=== PATIENT | male | born 1980 | race Caucasian/White ===

== ENCOUNTER 2025-07-04 21:02 | Inpatient (IN) | payer BC ==
[~2025-07-04] VITALS: Ht 182.9 cm; Wt 77.3 kg
--- NOTE | 2025-07-04 21:12 | Physician Documentation ---
History of Present Illness Stated Complaint: KIDNEY STONES Time Seen by MD: 21:07 HPI Patient presents to the emergency room sent from [facility] for 2.3 cm obstructing kidney stone with intractable pain. No acute kidney injury was appreciated at sending facility and no urinary tract infection however he has been fighting a urinary tract infection therefore 1 g of Rocephin was empirically administered. Patient has required prior stenting. He does not have a urologist. Medication Reconciliation Allergies: Coded Allergies: No Known Allergies (Unverified , 07/04/25) Review of Systems ROS All review of systems negative except as per HPI Physical Exam Physical Exam General: Patient is awake, alert, oriented x4 in mild distress Head: Normocephalic and atraumatic. Eyes: Conjunctival normal. EOMI. PERRL. ENT: Mucous membranes moist. Neck: Supple, trachea is midline. Chest: Clear to auscultation bilaterally without rales, rhonchi, or wheezes. T here is no accessory muscle use or retractions. Cardiac: RRR without murmurs, gallops, or rubs. Back: Noted left CVA tenderness Progress Progress Note I have spoken with urologist, Dr. Dhillon, who is aware of patient and request patient to be NPO and he will likely bring patient in for stenting tomorrow morning. Medical Decision Making Findings Patient presents to the emergency room for evaluation by Urology sent from [facility]. He has intractable pain along with a 2.3 cm kidney stone. Additional pain medicine required. The plan is to take patient to urology suite tomorrow by Dr. Dhillon. Differential Dx:Considerations: Include: AAA, Angina/IL, Aortic dissection, Appendicitis, Bowel obstruction, Cholangitis, Cholelithasis, Constipation, Diverticular disease, Esophageal rupture, Esophagitis, Gastritis/PUD, Gastroenteritis, GI hemorrhage, Hernia, Hepatitis, Inflammatory BD, Ischemic bowel, Pancreatitis, Porphyria, Testicular torsion, Trauma, intraabdominal, Urinary obstruction, Urinary tract infection, Urolithiasis, Other Departure Admitted to Inpatient Unit: yes, to hospitalist Impression: Primary Impression: Kidney stone Additional Impression: Intractable pain Referrals: NO PRIMARY CARE PROVIDER (PCP) Critical Care Note Total Time (mins): 30 Critical Care Note The very real possibility of a deterioration of this patient's condition required the highest level of my preparedness for sudden, emergent intervention. I provided critical care services, which included medication orders, frequent reevaluations of the patient's condition and response to treatment, ordering and reviewing test results, and discussing the case with various consultants. Excludes time spent performing separately billable procedures. The critical care time associated with the care of the patient was 30 minutes not counting procedures Signature Scribe Signature: No scribe Attestation: The note accurately reflects work and decisions made by me.Bulmaro Oliver MD 07/04/25 21:23 BULMARO OLIVER MD Jul 04, 2025 21:12
[2025-07-04] MEDS ORDERED: magnesium Cl slow-release 64mg tablet PO PRN (22:30)
[2025-07-04] MEDS ORDERED: potassium Cl 40MEQ/1/2NS 520ml 520 ML IV PRN (22:30)
[2025-07-04] MEDS ORDERED: magnesium sulf-water 4G/100mL 100 ML IV PRN (22:30)
[2025-07-04] MEDS ORDERED: mag hydrox/Alum hydrox/simeth 30ml oral suspension PO PRN (22:30)
[2025-07-04] MEDS ORDERED: HYDROcodone/acetaminophen 5mg/325mg tablet PO PRN (22:30)
[2025-07-04] MEDS ORDERED: potassium Cl 20 mEq SR tablet PO PRN ×2 (22:30)
[2025-07-04] MEDS ORDERED: magnesium sulf-water 2g/50mL 50 ML IV PRN (22:30)
[2025-07-04] MEDS ORDERED: magnesium hydroxide 30ml (MOM) UD suspension PO PRN (22:30)
[2025-07-04 22:49] LABS: MEAN PLATELET VOLUME 6.3 FL (7.4-10.4); RED CELL DISTRIBUTION WIDTH 14.1 % (11.5-14.5)
[2025-07-04] MEDS: normal saline 1000ml 1,000 ML IV SCH (22:49)
[2025-07-04 23:00] LABS: APTT 29 SECONDS (22-32); INR 1.1 INR
[2025-07-04 23:02] LABS: CREATININE 1.53 MG/DL (0.60-1.10); PHOSPHORUS 3.8 MG/DL (2.3-4.5); TOTAL CARBON DIOXIDE 26.5 MMOL/L (24-32); eCRCL 66 ML/MIN; eGFR 49 ML/MIN
--- NOTE | 2025-07-04 23:19 | HISTORY AND PHYSICAL-Residence ---
History & Physical Providers to Resident Creating Document: RUBÉN QUIÑONES RES ~ History of Present Illness Reason for Admit\Complaint: Left flank pain History of Present Illness The 44-year-old male with a past medical history of recurrent renal stones and UTIs was transferred from [facility] for higher level of care- urology consultation. He has a history of recurrent renal stones that started about 10 years back. He got a lithotripsy and intraureteral stent placement on the right side about 10 years back. Had shockwave lithotripsy done 2-3 years later on bilateral sides. Since then, he had been passing recurrent renal stone s-about 14 in the last 7-8 years. Stated that he usually notices blood in urine and bloody clots. He developed left flank pain about two months back which got worse with the movement and relieved with the rest. He did not use any pain medications but used in a year with the medication that he buys from [employer]. He tested his urine at home and it was positive for leukocyte esterase - dipstick test. Also had dysuria and so consulted [employer] who prescribed ciprofloxacin 200 mg p.o. b.i.d. for 10 days in the last dose was Tuesday this week. He felt better while he was taking antibiotics and denies any dysuria but the pain is back again. It started today and it was worse than before and he also vomited 2-3 times today. Feels that he had some fever but did not check temperature. So he went to the ER. He received 1 L normal saline bolus, Rocephin 1 g IV, pain medication-morphine 4 mg IV once, q.12h 30 mg IM once and also Zofran at the outside hospital. Abdomen/pelvis CT done at the outside hospital showed moderate new left hydronephrosis and chronic minimal right hydronephrosis. ER provider consulted on-call urologist-Dr. Dhillon and his planning a procedure tomorrow. He said he had at least 2-3 UTIs in the last one year. Denies having any PCP and no urology follow up. His urologist retired in 2020. He got a new referral to a urologist via [employer] and a referral was sent to Dr. Crespo. Mentioned that he used to take celecoxib in the past but denies taking any pain medication recently. Denies being told about stone composition ever in the past. 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 Quit smoking tobacco about 10 years back. Smoked half pack of cigarettes for about 15-20 years before that. Quit drinking alcohol about 10 years back and mentioned that he drank a lot before that-beer, whiskey, vodka in the same day. Smokes marijuana daily ROS ROS Constitutional: No fever, chills, dizziness, weakness, weight gain or loss Eyes: No pain, erythema, discharge, blurring of vision ENT: No sore throat, epistaxis, tinnitus Cardiovascular: No chest pain, chest pressure, chest discomfort, palpitations, syncope, lower extremity edema, paroxysmal nocturnal dyspnea Respiratory: No shortness of breath, cough, hemoptysis Gastrointestinal: Normal appetite. No nausea, vomiting, diarrhea, constipation, hematemesis, abdominal pain, bloating, melena or fresh blood Genitourinary: Hematuria present. No frequency, urgency, nocturia, or dysuria Musculoskeletal: Left flank pain present. No arthralgias Integumentary: No change in skin, hair, nails. No swelling, bruising, abrasions Neurologic: No headache, neck pain, numbness or tingling of the extremities, weakness Psychiatric: No delusions, depression, loss of interest in normal activity or change in sleep pattern, hallucinations, suicidal ideations Endocrine: No fatigue, weakness, polydipsia, polyuria, change in appetite, heat or cold intolerance, sweating, dry skin Hematological: No bleeding, petechiae, bruising Allergies: No asthma or urticaria Exam Vitals: Vital Signs Date Time Temp Pulse Resp B/P (MAP) Pulse Ox O2 Delivery O2 Flow Rate FiO2 07/04/25 21:54 18 07/04/25 21:53 88 128/79 (95) 99 0 07/04/25 21:05 98.2 General: Alert and oriented x4 HEENT: Normocephalic and atraumatic. Pupils equal round reactive to light and accommodation. Extraocular movements intact. Oral and nasal mucosa moist Neck: Trachea is in midline. No masses or JVD Chest: Bilateral normal breath sounds. No crackles, rhonchi or wheezes Cardiovascular: Regular rate and rhythm. S1-S2 normal. No rubs or murmurs Abdomen: Soft, nontender nondistended. Bowel sounds present. Mild tenderness in the left lower flank. No costovertebral angle tenderness bilaterally Extremities: No cyanosis, clubbing or edema Central Nervous System: No gross sensory or motor deficits. CN II to XII grossly intact. No cerebellar signs Musculoskeletal: No spinal or paraspinal tenderness apart from left lower flank tenderness Skin: Warm and dry Diagnostic Data Diagnostic Data: Laboratory Tests Test 07/04/25 22:39 Coagulation Comments Advance Care Planning Advanced Care plannin - 30 Minutes Additional Plan Recurrent renal stones New moderate left hydronephrosis and chronic minimal right hydronephrosis History of right ureteral stent placement about 10 years back-removed few weeks later Abdomen/pelvis CT at the outside hospital showed moderate new left hydronephrosis due to a 2.3 cm calculus at the left ureteropelvic junction. There is chronic minimal right hydronephrosis due to a calculus at the right mid ureter measuring 5 mm at the level of S1. Additional smaller stones in both the kidneys. Diverticulosis of the sigmoid colon without diverticulitis Received 1 L normal saline bolus, Rocephin 1 g IV, pain medication and antiemetics at the outside hospital Slightly elevated WBC with neutrophilia. Started Rocephin 1 g IV daily from tomorrow Procalcitonin ordered. Lactic acid within normal limit Started tamsulosin 0.4 mg p.o. daily Started normal saline 1 L at 100 cc/hour Morphine/Gladstone for pain Avoiding Ketoralac due to possible underlying CKD Continue Zofran 4 mg IV q.6h p.r.n. for nausea/vomiting Pending UA and urine tox UA at the outside hospital showed trace leukocyte esterase, 14 WBC, 80 RBC Blood culture and urine culture ordered Urologist-Dr. Dhillon aware. Plan for a procedure tomorrow. NPO after midnight Possible RENUKA on CKD BUN 20, creatinine 1.53, EGFR 49 At the outside hospital, BUN 22, creatinine 1.16 and EGFR 79 Urine lytes ordered Continue normal saline at 100 cc/hour Hypogonadism Takes subcu testosterone 80 mg once a week - on Tuesdays # chest x-ray showed hyperinflation and no acute cardiopulmonary abnormalities # pending EKG and med reconciliation Diet: Sodium restricted diet. NPO after midnight DVT prophylaxis: Heparin 5000 units subcutaneous q.12h Rubén Quiñones MD Internal Medicine Resident, PGY 3 Patient seen and evalauted using HIP[employer] complaint AV device Agree with plan as discussed with the resident Aris Martinez MD Date of Service: Jul 05, 2025 Billing Provider: ARIS MARTINEZ MD, MANOJNA RES Jul 04, 2025 23:19 ARIS MARTINEZ MD Jul 05, 2025 01:15
[2025-07-04] MEDS ORDERED: TEST200K SQ (23:32)
--- NOTE | 2025-07-04 23:48 | RADIOLOGY REPORT ---
EXAM: DI CHEST,SINGLE VIEW CLINICAL HISTORY: monitor changes TECHNIQUE: Single AP view of the chest WID: COMPARISON: None FINDINGS: Lines and tubes: None Chest: The heart size and pulmonary vasculature is within normal limits. No pleural effusion, pneumothorax, or consolidation. The osseous structures are grossly intact. IMPRESSION: 1. No acute cardiopulmonary abnormality.
[2025-07-05] VITALS (21 sets, daily range): BP systolic 96–145; BP diastolic 54–114; PULSE 73–117; RESP 12–20; TEMP 97.6–99.6; O2SAT 91–100
[2025-07-05 00:26] LABS: LEUKOCYTE ESTERASE ,URINE NEGATIVE (Neg); NITRITES, URINE NEGATIVE (Neg); OCCULT BLOOD,URINE SMALL (Neg)
[2025-07-05 00:29] LABS: UA COLLECTION TYPE CLN CATCH MIDSTREAM
[2025-07-05 00:44] LABS: OSMOLALITY UA 693 MOSM/K (50-1400)
[2025-07-05 00:46] LABS: CREATININE,URINE RANDOM 234.0 MG/DL; URINE AMPHETAMINE SCREEN NEGATIVE (Neg); URINE BARBITUATE SCREEN NEGATIVE (Neg); URINE BENZODIAZEPINES SCREEN NEGATIVE (Neg); URINE CANNABINOID SCREEN POSITIVE (Neg); URINE COCAINE SCREEN NEGATIVE (Neg); URINE METHADONE SCREEN NEGATIVE (Neg); URINE OPIATE SCREEN POSITIVE (Neg); URINE PHENCYCLIDINE SCREEN NEGATIVE (Neg)
[2025-07-05 00:50] LABS: MUCUS STRANDS MODERATE /LPF (Neg); SQUAMOUS EPITHELIAL CELL,UR NONE SEEN /LPF (FEW)
[2025-07-05] MEDS: ondansetron/PF 4mg/2ml inj IV PRN (01:24)
[2025-07-05 03:10] LABS: UA EOSINOPHILS NO EOS /HPF
[2025-07-05] MEDS ORDERED: morphine 4 MG/ML inj SYRINge IV PRN ×3 (04:05→13:50)
[2025-07-05] MEDS: HYDROmorphone inj. 0.5 MG/0.5 ML DISP.SYRIN IV PRN (04:21)
[2025-07-05 04:41] LABS: MEAN PLATELET VOLUME 6.5 FL (7.4-10.4); RED CELL DISTRIBUTION WIDTH 14.1 % (11.5-14.5)
[2025-07-05 04:59] LABS: APTT 29 SECONDS (22-32); INR 1.1 INR
[2025-07-05 05:15] LABS: CHOL/HDL RATIO 4.4 (0.00-4.99); CREATININE 1.62 MG/DL (0.60-1.10); LDL CHOLESTEROL 139 MG/DL (50-100); PHOSPHORUS 3.2 MG/DL (2.3-4.5); TOTAL CARBON DIOXIDE 27.8 MMOL/L (24-32); eCRCL 62 ML/MIN; eGFR 46 ML/MIN
[2025-07-05] MEDS: K and/or MAG REPLACEMENT MC SCH (08:00)
[2025-07-05] MEDS: heparin, porcine 5000 units/ml vial SQ SCH (08:00)
[2025-07-05] MEDS: CefTRIAXone/D5W-Rocephin 1gm 50 ML IV SCH (08:30)
--- NOTE | 2025-07-05 10:56 | ELECTROCARDIOGRAPH REPORT ---
[facility] Test Date: 2025-07-05 Test Time: 09:14:19 Pat Name: WILMA FIELDS Department: [facility] 3N Room: [place] [address] A Gender: M Assistant Quality Manager: briana : 1980 Requested By: RUBÉN QUIÑONES Order Number: [id number] Reading MD: Dr. WARD Card Measurements Intervals [place] Rate: 83 P: 78 HI: 165 QRS: 32 QRSD: 96 T: 57 QT: 350 QTc: 412 Interpretive Statements Sinus rhythm ST elev, probable normal early repol pattern Electronically Signed On 07-06-2025 19:12:[address] WARD Card Please click the below link to view image of tracing.
[2025-07-05] MEDS ORDERED: TEST200V33 SQ (10:59)
[2025-07-05] MEDS ORDERED: iohexol 300mg/ml 100ml inj. ONE (12:27)
--- NOTE | 2025-07-05 12:52 | PROGRESS NOTE- Residence ---
Progress Note - Resident Providers to CC Resident Creating Document: RONALDO MCKEE RES ~ Antibiotic Timeout Antibiotic Ordered?: Yes Subjective Seen and examined the patient bedside. He reports nausea after getting the Dilaudid and is subsided with Zofran. He is going to the OR for urological procedure around 1:00 p.m. today. Objective Vital Signs Date Time Temp Pulse Resp B/P (MAP) Pulse Ox O2 Delivery O2 Flow Rate FiO2 07/05/25 10:21 98.7 80 16 133/72 (92) 99 Room Air 07/05/25 02:00 0.0 Result Diagram: 07/05/2541607/05/25416 General: Alert and oriented x4 HEENT: Normocephalic and atraumatic. Pupils equal round reactive to light and accommodation. Extraocular movements intact. Oral and nasal mucosa moist. Neck: Trachea is in midline. No masses or JVD Chest: Bilateral normal breath sounds. No crackles, rhonchi or wheezes Cardiovascular: Regular rate and rhythm. S1-S2 normal. No rubs or murmurs Abdomen: Soft, nontender nondistended. Bowel sounds present. Mild tenderness in the left lower flank. No costovertebral angle tenderness bilaterally Extremities: No cyanosis, clubbing or edema Central Nervous System: No gross sensory or motor deficits. CN II to XII grossly intact. No cerebellar signs Musculoskeletal: No spinal or paraspinal tenderness apart from left lower flank tenderness Skin: Warm and dry Coagulation Studies Laboratory Tests Test 07/05/25 04:17 Prothrombin Time 10.9 SECONDS (9.0-12.0) INR International Normalized Ratio 1.1 INR Activated Partial Thromboplast Time 29 SECONDS (22-32) Coagulation Comments Advance Care Planning Advanced Care plannin - 30 Minutes Plan Plan Recurrent nephrolithiasis New moderate left hydronephrosis and chronic minimal right hydronephrosis History of right ureteral stent placement about 10 years back-removed few weeks later Abdomen/pelvis CT at the outside hospital showed moderate new left hydronephrosis due to a 2.3 cm calculus at the left ureteropelvic junction. There is chronic minimal right hydronephrosis due to a calculus at the right mid ureter measuring 5 mm at the level of S1. Additional smaller stones in both the kidneys. Diverticulosis of the sigmoid colon without diverticulitis We will continue Rocephin and antiemetics and normal saline. Patient is in NPO We will continue normal saline at the rate of 100 mL/hour Morphine/Lewis for pain Avoiding Ketoralac due to possible underlying CKD Continue Zofran 4 mg IV q.6h p.r.n. for nausea/vomiting UA tox cannabinoids is positive UA at the outside hospital showed trace leukocyte esterase, 14 WBC, 80 RBC Preliminary blood culture is negative and urine culture is negative. Urologist-Dr. Dhillon is on board and planning to do the procedure at 1:00 p.m. today RENUKA on chronic kidney disease likely 2/2 Renal Tubular stasis BUN 20, creatinine 1.62, EGFR 46 At the outside hospital, BUN 22, creatinine 1.16 and EGFR 79 Hypogonadism Takes subcu testosterone 80 mg once a week - on Tuesdays Code status: Full code Diet: NPO DVT prophylaxis: Heparin 5000 units subcutaneous q.12h Disposition: Anticipate discharge home after surgery if clinically stable Ronaldo Mckee IM resident, PGY 2 Date of Service: Jul 05, 2025 Billing Provider: TRINIDAD COLVIN MD Common Visit Codes: [id number] INP/OBS CARE(HIGH) RONALDO MCKEE, BRYANNA Jul 05, 2025 12:52 TRINIDAD COLVIN MD Jul 05, 2025 18:24
[2025-07-05] MEDS ORDERED: fentaNYL/PF 50MCG/1 ML 2ML syringe ONE (13:10)
[2025-07-05] MEDS ORDERED: midazolam 1 mg/ML 2ml injection ONE (13:11)
[2025-07-05] MEDS ORDERED: propofol inj 20 ML IV ONE (13:12)
[2025-07-05] MEDS ORDERED: ondansetron/PF 4mg/2ml inj IV PRN (13:50)
[2025-07-05] MEDS ORDERED: labetalol 20mg/4ml (5mg/ml) syringe IV PRN (13:50)
[2025-07-05] MEDS ORDERED: hydrALAZINE 20mg/ml inj. IV PRN (13:50)
[2025-07-05] MEDS ORDERED: acetaminophen 1,000mg/100ml IV 100 ML IV PRN (13:50)
[2025-07-05] MEDS: ringers solution, lacted 1,000 ML IV SCH (13:50)
[2025-07-05] MEDS ORDERED: HYDROmorphone/PF 0.2 MG/ML SYRINGE IV PRN (13:50)
--- NOTE | 2025-07-05 14:10 | POSTOPERATIVE RECORDS ---
Postoperative Records Providers to CC ~ Date of Procedure: Jul 05, 2025 Problems: (1) Kidney stone (2) Intractable pain Post-Operative Diagnosis SAME as PRE-Op Procedure Performed cystoscopy, left RPG and stone manipulation and stent placement Surgeon: Jacquie Hwang none Anesthesiologist: John Landeros Type of Anesthesia: General Findings: dictated Complications none Prosthetics\Implants used: stent Estimated Blood Loss: none Specimen Removed: none Description of Procedure: dictated ALLEN SANTOS MD Jul 05, 2025 14:10
[2025-07-05] MEDS: HYDROmorphone/PF 0.2 MG/ML SYRINGE IV PRN (14:43)
[2025-07-05] MEDS: HYDROcodone/acetaminophen 10/325mg tab PO PRN (20:18)
[2025-07-06 02:00] VITALS: BP 102/56; PULSE 86; RESP 18; TEMP 98.1; O2SAT 96
--- NOTE | 2025-07-06 02:26 | CONSULTATION ---
DATE OF CONSULTATION: 07/05/2025 DICTATING PHYSICIAN: Josue Dhillon MD HISTORY OF PRESENT ILLNESS: A 44-year-old male with a history of recurrent nephrolithiasis, who presented himself with severe left flank pain. He has been treated multiple times in the past for recurrent nephrolithiasis, having seen Dr. Veliz, who retired in 2020. He also had a possible appointment with Dr. Crespo, but has never been able to make that appointment. His past treatments have included lithotripsy and ureteroscopic stone extraction with laser. He presented at this time with severe left flank pain with chills. He has had 2-3 UTIs in the last year. PAST SURGICAL HISTORY: Bilateral ESWL and ureteroscopic stone extraction. PAST MEDICAL HISTORY: Recurrent UTIs, nephrolithiasis, hypogonadism on androgen replacement therapy. ALLERGIES: None. MEDICATIONS: See list. SOCIAL HISTORY: Quit alcohol 10 years ago. Quit smoking about 10 years ago. 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 REVIEW OF SYSTEMS: Ten-point review of systems negative except for HPI. PHYSICAL EXAMINATION: VITAL SIGNS: Blood pressure is 128/79, respirations 18, pulse is 88, temperature is 98.2. GENERAL: In general, the patient is in mild distress, but has been medicated by the time I see him. LABORATORY DATA: White count is 12,500, hematocrit is 42%. BUN and creatinine are 23 and 1.6. Urinalysis revealing for 10-20 red cells and 5-10 white cells per high-power field. IMAGING: CT scan is not available to my review, but by report suggests a 2.3 cm stone, which is lodged in the left ureteropelvic junction with hydronephrosis on that side. ASSESSMENT: Pain secondary to sizable left renal calculus with partial obstruction of the left kidney. Decompression indicated. PLAN: Operative intervention did consist of cystoscopy, left retrograde pyelogram with stone manipulation and stent placement. Informed consent was obtained. Risks, benefits, and complications discussed. The patient understands and wishes to proceed. He further understands that he will require a secondary procedure to get rid of the stone electively at some point in the future following decompression today. Josue Dhillon MD TID: [id number] RECEIPT: [id number] EMEKA/MYCHAL
[2025-07-06 06:24] VITALS: BP 99/57; PULSE 83; RESP 14; TEMP 98.5; O2SAT 96
[2025-07-06 06:26] LABS: MEAN PLATELET VOLUME 6.7 FL (7.4-10.4); RED CELL DISTRIBUTION WIDTH 14.1 % (11.5-14.5)
[2025-07-06 06:33] LABS: APTT 32 SECONDS (22-32); INR 1.1 INR
[2025-07-06 06:46] LABS: CREATININE 1.08 MG/DL (0.60-1.10); PHOSPHORUS 3.0 MG/DL (2.3-4.5); TOTAL CARBON DIOXIDE 29.0 MMOL/L (24-32); eCRCL 93 ML/MIN; eGFR 74 ML/MIN
[2025-07-06 08:00] VITALS: RESP 18
[2025-07-06] MEDS ORDERED: ACET-1008 PO (10:12)
[2025-07-06 10:14] VITALS: BP 112/58; PULSE 86; RESP 18; TEMP 97.6; O2SAT 97
[2025-07-06] MEDS ORDERED: IBUP600T52 PO (10:14)
[2025-07-06] MEDS ORDERED: PANT40TA54 PO (10:14)
[2025-07-06] MEDS ORDERED: CEFD300C3 PO (10:31)
[2025-07-06] MEDS ORDERED: LACT1CAP26 PO (10:32)
--- NOTE | 2025-07-06 11:17 | DISCHARGE SUMMARY-Residence ---
Discharge Summary Providers to CC Resident Creating Document: ANA MCKEE, BRYANNA ~ Discharge Summary Admission Diagnosis: RENAL STONE Hospital Course DATE OF ADMISSION: 07/04/2025 DATE OF DISCHARGE: 07/06/2025 Chest x-ray on 07/04/2025 FINDINGS: Lines and tubes: None Chest: The heart size and pulmonary vasculature is within normal limits. No pleural effusion, pneumothorax, or consolidation. The osseous structures are grossly intact. IMPRESSION: 1. No acute cardiopulmonary abnormality. Discharge Diagnosis\Comment: Intractable abdominal pain Recurrent nephroureterolithiasis Left hydronephrosis secondary to 2.3 cm calculi at left ureteropelvic junction Chronic right hydronephrosis with 5 mm calculi at right mid ureter RENUKA on chronic kidney disease Renal tubular stasis Sigmoid diverticulosis Cannabinoid use Hypogonadism Mild protein malnutrition Hypoalbuminemia Hyperlipidemia Operations\Procedures: by Dr. Dhillon Date of Procedure: Jul 05, 2025 Problems: kidney stone intractable pain Post-Operative Diagnosis SAME as PRE-Op Procedure Performed cystoscopy, left RPG and stone manipulation and stent placement Surgeon: Jacquie Neuropsychology Medical Consultant none Anesthesiologist: John Landeros Type of Anesthesia: General Findings: dictated Complications none Prosthetics\Implants used: stent Estimated Blood Loss: none Specimen Removed: none Description of Procedure: dictated Consultants: Dr. Dhillon Complications: None Condition on DC: Stable New Medications: Cefdinir* (Cefdinir*) 300 Mg Capsule 1 CAP PO Q12H for 5 Days, #10 CAP Ibuprofen (Ibuprofen) 600 Mg Tablet 1 TAB PO Q12H for pain for 5 Days, #10 TAB 0 Refills with food Lactobacillus Rhamnosus (Culturelle) 10 Billion Cell Capsule 1 CAP PO BID for 30 Days, #30 CAP 0 Refills Pantoprazole Sodium (Pantoprazole Sodium) 40 Mg Tablet.dr 40 MG PO BKF for 7 Days, #7 TAB.SR Continued Medications: Acetaminophen (Tylenol) 325 Mg Tablet 650 MG PO Q8H for 5 Days, #15 TAB Testosterone Cypionate (TESTOSTERONE CYPIONATE 200mg/ml 10ml vial) 200 Mg/Ml Vial 80 MG SQ Q7D, ML 0 Refills Discharge Summary: HPI at the time of admission per admitting physician The 44-year-old male with a past medical history of recurrent renal stones and UTIs was transferred from [facility] for higher level of care- urology consultation. He has a history of recurrent renal stones that started about 10 years back. He got a lithotripsy and intraureteral stent placement on the right side about 10 years back. Had shockwave lithotripsy done 2-3 years later on bilateral sides. Since then, he had been passing recurrent renal stones-about 14 in the last 7-8 years. Stated that he usually notices blood in urine and bloody clots. He developed left flank pain about two months back which got worse with the movement and relieved with the rest. He did not use any pain medications but used in a year with the medication that he buys from [employer]. He tested his urine at home and it was positive for leukocyte esterase - dipstick test. Also had dysuria and so consulted [facility] who prescribed ciprofloxacin 200 mg p.o. b.i.d. for 10 days in the last dose was Tuesday this week. He felt better while he was taking antibiotics and denies any dysuria but the pain is back again. It started today and it was worse than before and he al so vomited 2-3 times today. Feels that he had some fever but did not check temperature. So he went to the ER. He received 1 L normal saline bolus, Rocephin 1 g IV, pain medication-morphine 4 mg IV once, q.12h 30 mg IM once and also Zofran at the outside hospital. Abdomen/pelvis CT done at the outside hospital showed moderate new left hydronephrosis and chronic minimal right hyd ronephrosis. ER provider consulted on-call urologist-Dr. Dhillon and his planning a procedure tomorrow. He said he had at least 2-3 UTIs in the last one year. Denies having any PCP and no urology follow up. His urologist retired in 2020. He got a new referral to a urologist via [facility] and a referral was sent to Dr. Crespo. Mentioned that he used to take celecoxib in the past but denies taking any pain medication recently. Denies being told about stone composition ever in the past. He tries to eat low oxalate diet- avoids nuts and also low-salt diet Course in the hospital 44 years old male admitted with a recurrent nephrolithiasis and moderate left acute hydronephrosis and chronic minimal right hydronephrosis with RENUKA. Abdo men/pelvis CT at the outside hospital showed moderate new left hydronephrosis due to a 2.3 cm calculus at the left ureteropelvic junction. There is chronic minimal right hydronephrosis due to a calculus at the right mid ureter measuring 5 mm at the level of S1, Additional smaller stones in both the kidneys, Diverticulosis of the sigmoid colon without diverticulitis. Treated with Rocephin, Zofran, normal saline, Dale and morphine. U tox is positive for cannabinoids. UA at the outside hospital showed trace leukocyte esterase, 14 WBC, 80 RBC. Blood culture and urine culture is negative. We Consulted Dr. Dhillon And subsequently patient underwent cystoscopy, left RPG and stone manipulation and stent placement. RENUKA on chronic kidney disease is noted secondary to renal tubular stasis and was taken care with IV normal saline. He is taking subcutaneous testosterone for hypogonadism. Examination time of discharge Vital Signs Date Time Temp Pulse Resp B/P (MAP) Pulse Ox O2 Delivery O2 Flow Rate FiO2 07/06/25 11:30 Room Air 07/06/25 10:14 97.6 86 18 112/58 (76) 97 07/06/25 04:30 0.0 96 General: Alert and oriented x4 HEENT: Normocephalic and atraumatic. Pupils equal round reactive to light and accommodation. Extraocular movements intact. Oral and nasal mucosa moist. Neck: Trachea is in midline. No masses or JVD Chest: Bilateral normal breath sounds. No crackles, rhonchi or wheezes Cardiovascular: Regular rate and rhythm. S1-S2 normal. No rubs or murmurs Abdomen: Soft, nontender nondistended. Bowel sounds present. No tenderness. No costovertebral angle tenderness bilaterally Extremities: No cyanosis, clubbing or edema Central Nervous System: No gross sensory or motor deficits. CN II to XII grossly intact. No cerebellar signs Musculoskeletal: No spinal or paraspinal tenderness apart from left lower flank tenderness Skin: Warm and dry Laboratory Tests Test 07/04/25 22:39 07/04/25 23:19 07/05/25 04:17 07/05/25 12:13 White Blood Count 12.5 X10'3 11.3 X10'3 Red Blood Count 4.73 X10'6 4.49 X10'6 Hemoglobin 14.0 g/dl 13.3 g/dl Hematocrit 41.8 % 39.6 % Mean Corpuscular Volume 88.2 FL 88.2 FL Mean Corpuscular Hemoglobin 29.7 PG 29.6 PG Mean Corpuscular Hemoglobin Concent 33.6 g/dL 33.6 g/dL Red Cell Distribution Width 14.1 % 14.1 % Platelet Count 443 X10'3 401 X10'3 Mean Platelet Volume 6.3 FL 6.5 FL Neutrophils (%) (Auto) 81.3 % 76.7 % Lymphocytes (%) (Auto) 9.9 % 13.1 % Monocytes (%) (Auto) 8.2 % 9.6 % Eosinophils (%) (Auto) 0.3 % 0.3 % Basophils (%) (Auto) 0.3 % 0.3 % Neutrophils # (Auto) 10.1 X10'3 8.7 X10'3 Lymphocytes # (Auto) 1.2 X10'3 1.5 X10'3 Monocytes # (Auto) 1.0 X10'3 1.1 X10'3 Eosinophils # (Auto) 0.0 X10'3 0.0 X10'3 Basophils # (Auto) 0.0 X10'3 0.0 X10'3 CBC Comment Prothrombin Time 10.8 SECONDS 10.9 SECONDS INR International Normalized Ratio 1.1 INR 1.1 INR Activated Partial Thromboplast Time 29 SECONDS 29 SECONDS Coagulation Comments Sodium Level 143 MMOL/L 143 MMOL/L Potassium Level 4.1 MMOL/L 4.2 MMOL/L Chloride Level 106 MMOL/L 107 MMOL/L Carbon Dioxide Level 26.5 MMOL/L 27.8 MMOL/L Anion Gap 11 8 Blood Urea Nitrogen 20 MG/DL 23 MG/DL Creatinine 1.53 MG/DL 1.62 MG/DL Estimated GFR/1.73 m2 49 ML/MIN 46 ML/MIN BUN/Creatinine Ratio 13.1 14.2 Glucose Level 109 MG/DL 100 MG/DL Hemoglobin A1c 5.1 % Lactic Acid Level 0.8 MMOL/L Calcium Level 8.7 MG/DL 8.6 MG/DL Phosphorus Level 3.8 MG/DL 3.2 MG/DL Magnesium Level 2.1 MG/DL 2.1 MG/DL Total Bilirubin 0.4 MG/DL 0.4 MG/DL Aspartate Amino Transf (AST/SGOT) 19 U/L 22 U/L Alanine Aminotransferase (ALT/SGPT) 42 U/L 36 U/L Alkaline Phosphatase 55 IU/L 50 IU/L Total Protein 7.2 G/DL 6.6 G/DL Albumin 3.8 G/DL 3.4 G/DL Globulin 3.4 G/DL 3.2 G/DL Albumin/Globulin Ratio 1.1 1.1 Chemistry Comments Urine Specimen Description Cln catch midstream Urine Color Yellow Urine Clarity Clear Urine pH 5.5 Urine Specific [place] >=1.030 Urine Protein Negative mg/dl Urine Glucose (UA) Negative mg/dl Urine Ketones >=80 mg/dl Urine Occult Blood Small Urine Nitrite Negative Urine Bilirubin Negative Urine Urobilinogen 0.2 E.U/dL Urine Leukocyte Esterase Negative Urine RBC 10-20 /HPF Urine WBC 5-10 /HPF Urine Squamous Epithelial Cells None seen /LPF Urine Bacteria 2+ /HPF Urine Mucus Moderate /LPF Urine Culture Indicated Indicated Volume Urine Centrifuged 10 ml Urine Eosinophils No eos /HPF Urine Osmolality 693 MOSM/K Urine Random Creatinine 234.0 MG/DL Urine Random Sodium 69 MEQ/L Urine Random Potassium 63 MEQ/L Urine Comment Urine Opiates Screen Positive Urine Methadone Screen Negative Urine Fentanyl Screen Negative Urine Barbiturates Screen Negative Urine Phencyclidine Screen Negative Urine Amphetamines Screen Negative Urine Benzodiazepines Screen Negative Urine Cocaine Screen Negative Urine Cannabinoids Screen Positive Drug Screen Comment Triglycerides Level 76 MG/DL Cholesterol Level 227 MG/DL LDL Cholesterol 139 MG/DL HDL Cholesterol 52 MG/DL Cholesterol/HDL Ratio 4.4 Glucometer 100 mg/dl Test 07/06/25 05:33 White Blood Count 9.7 X10'3 Red Blood Count 4.00 X10'6 Hemoglobin 11.9 g/dl Hematocrit 35.6 % Mean Corpuscular Volume 88.9 FL Mean Corpuscular Hemoglobin 29.8 PG Mean Corpuscular Hemoglobin Concent 33.5 g/dL Red Cell Distribution Width 14.1 % Platelet Count 340 X10'3 Mean Platelet Volume 6.7 FL Neutrophils (%) (Auto) 64.3 % Lymphocytes (%) (Auto) 25.9 % Monocytes (%) (Auto) 7.5 % Eosinophils (%) (Auto) 1.8 % Basophils (%) (Auto) 0.5 % Neutrophils # (Auto) 6.2 X10'3 Lymphocytes # (Auto) 2.5 X10'3 Monocytes # (Auto) 0.7 X10'3 Eosinophils # (Auto) 0.2 X10'3 Basophils # (Auto) 0.0 X10'3 CBC Comment Prothrombin Time 11.6 SECONDS INR International Normalized Ratio 1.1 INR Activated Partial Thromboplast Time 32 SECONDS Coagulation Comments Sodium Level 142 MMOL/L Potassium Level 3.8 MMOL/L Chloride Level 106 MMOL/L Carbon Dioxide Level 29.0 MMOL/L Anion Gap 7 Blood Urea Nitrogen 12 MG/DL Creatinine 1.08 MG/DL Estimated GFR/1.73 m2 74 ML/MIN BUN/Creatinine Ratio 11.1 Glucose Level 86 MG/DL Calcium Level 8.3 MG/DL Phosphorus Level 3.0 MG/DL Magnesium Level 1.9 MG/DL Total Bilirubin 0.6 MG/DL Aspartate Amino Transf (AST/SGOT) 15 U/L Alanine Aminotransferase (ALT/SGPT) 27 U/L Alkaline Phosphatase 43 IU/L Total Protein 5.5 G/DL Albumin 2.8 G/DL Globulin 2.7 G/DL Albumin/Globulin Ratio 1.0 Chemistry Comments Discharge advice Please go to [facility] for PMD servies. I cannot make you an appointment until you complete the new paperwork for acceptance. [phone]. Follow up with Dr. Dhillon in outpatient. Maintain hydration with adequate fluids. continue cefdinir 300mg po BID for 5 days. review with cbc,cmp,procalcitonin,Esr with pcp in 5 days. Read about Adverse effects of medications prescribed. Call 911 or visit ER if emergency. *Problems/Diagnosis: (1) Nephroureterolithiasis (2) Intractable abdominal pain (3) Hydronephrosis, left (4) Hydronephrosis, right (5) RENUKA (acute kidney injury) (6) Hypogonadism (7) Sepsis (8) Marijuana smoker (9) Intractable pain Status: Acute (10) Mild protein malnutrition (11) Hypoalbuminemia (12) Hyperlipidemia Total Time Spent on D/C: > 30 Minutes Date of Service: Jul 06, 2025 Billing Provider: TRINIDAD COLVIN MD Common Visit Codes: 03442-CDD/OBS DISCH DAY >30min ANA MCKEE, BRYANNA Jul 06, 2025 11:17 TRINIDAD COLVIN MD Jul 07, 2025 16:00
--- NOTE | 2025-07-11 00:54 | OPERATIVE REPORT ---
DATE OF SURGERY: 07/05/2025 DICTATING PHYSICIAN: Josue Dhillon MD PREOPERATIVE DIAGNOSIS: Large left UPJ versus renal pelvic stone. POSTOPERATIVE DIAGNOSIS: Large left UPJ versus renal pelvic stone. OPERATIONS PERFORMED: 1. Cystoscopy. 2. Left retrograde pyelogram. 3. Left UPJ stone manipulation. 4. Left ureteral stent placement. SURGEON: Josue Dhillon MD ANESTHESIA: General. INDICATIONS: A 44-year-old male who presented with severe left flank pain secondary to a sizable stone, which was lodged in his UPJ versus renal pelvis. I was asked to consult. Stenting recommended. DESCRIPTION OF PROCEDURE: After informed consent, the patient was taken to the operating room and general anesthesia was induced. He was placed in the dorsal lithotomy position. The genitals were prepped and draped in usual fashion. The cystoscope was placed in the bladder and surveillance performed, which was normal. The left ureteral orifice was cannulated with a 5-Czech open-ended catheter. Retrograde pyelogram revealed a 2.3 cm stone which was very dense and located at the UPJ and lodged in the renal pelvis. With difficulty, a wire was pushed past the stone and in the process the stone was pushed from the UPJ to the renal pelvis alone. The stone moved in this way about 1 cm. It was elected to leave a stent. A 6-Czech x 26 cm double-J stent was advanced over the wire and the guidewire removed. A nice curl was noted in the kidney and bladder fluoroscopically and cystoscopically. The patient was then awakened from general anesthesia and tolerated the procedure well. COMPLICATIONS: None. ESTIMATED BLOOD LOSS: None. Josue Dhillon MD TID: [id number] RECEIPT: [id number] /RCR
== END 2025-07-06 14:05 | disposition home or self-care (01) | DRG 660 ==
LOC: ER 21:03 → ED HOLD 22:31 → EDBEDREQ 07-05 00:44 → SUR 3N 07-05 01:20
PROVIDERS: ADMIT Internal Medicine; ATTEND Internal Medicine
PROC: BT1F1ZZ Fluoroscopy of Left Kidney, Ureter and Bladder using Low Osmolar Contrast (ICD-10-PCS; 2025-07-05)
PROC: 0T778DZ Dilation of Left Ureter with Intraluminal Device, Via Natural or Artificial Opening Endoscopic (ICD-10-PCS; principal; 2025-07-05 13:10)
DX: N13.39 Other hydronephrosis (principal); E44.1 Mild protein-calorie malnutrition; N20.2 Calculus of kidney with calculus of ureter; N18.9 Chronic kidney disease, unspecified; N17.0 Acute kidney failure with tubular necrosis; E78.5 Hyperlipidemia, unspecified; K57.30 Diverticulosis of large intestine without perforation or abscess without bleeding; Z87.891 Personal history of nicotine dependence; Z68.23 Body mass index [BMI] 23.0-23.9, adult
CPT/HCPCS: 96374; 99291; Z7506; 36415; 71045; 80053; 80061; 80305; 81001; 82570; 82948; 83036; 83605; 83735; 83935; 84100; 84133; 84300; 85025; 85610; 85730; 87040; 87081; 87088; 87207; 93005; A4355; A4615; A4618; C1769; C2617; G0378; J0696; J1171; J1644; J2250; J2405; J2704; J3010; J7030; Q9967